=== PATIENT | male | born 1990 | race Caucasian/White ===

== ENCOUNTER → 2021-07-31 | Outpatient (CLI) | payer BC | LOC: HEART CORB 07-29 11:04 → ECHO 13:00 | DX: I10 Essential (primary) hypertension (principal); R07.2 Precordial pain; R06.00 Dyspnea, unspecified; R00.2 Palpitations; Z72.0 Tobacco use; I07.1 Rheumatic tricuspid insufficiency | CPT/HCPCS: 93306 ==